=== PATIENT | male | born 1970 | race Caucasian/White ===

== ENCOUNTER 2017-01-26 15:02 | Emergency (ER) | payer OTHER ==
[~2017-01-26] VITALS: Ht 170.1 cm; Wt 77.1 kg
[2017-01-26] MEDS ORDERED: PREDNISONE20 M1 PO (15:58)
== END 2017-01-26 16:00 | disposition home or self-care (01) ==
LOC: ED 15:02
DX: L24.7 Irritant contact dermatitis due to plants, except food (principal); Z91.040 Latex allergy status